=== PATIENT | female | born 1980 | race Caucasian/White ===

== ENCOUNTER 2023-03-11 08:48 | Emergency (ER) | payer MEDICAID ==
[2023-03-11] MEDS ORDERED: Sodium Chloride 0.9% 1,000 ML IV ONE (09:14)
[2023-03-11] MEDS ORDERED: Ondansetron 4 MG/2 ML SDV IVPUSH ONE (09:14)
[2023-03-11 09:24] LABS: APPEARANCE,URINE CLOUDY (CLEAR); BILIRUBIN,URINE NEGATIVE (NEGATIVE); COLOR,URINE YELLOW (YELLOW); GLUCOSE,URINE NEGATIVE (NEGATIVE); KETONES,URINE NEGATIVE (NEGATIVE); LEUKOCYTE ESTERASE,URINE SMALL (NEGATIVE); NITRITE,URINE NEGATIVE (NEGATIVE); OCCULT BLOOD,URINE TRACE-INTACT (NEGATIVE); PROTEIN,URINE 30 mg/dL (NEGATIVE); UROBILINOGEN,URINE 0.2 EU/dL (0.2-1.0)
[2023-03-11 09:28] LABS: HEMATOCRIT 36.7 % (34.3-46.0); MEAN CORPUSCULAR HEMOGLOBIN 29.7 pg (31.6-35.5); MEAN CORPUSCULAR HGB CONC 32.7 g/dL (31.6-35.5); MEAN CORPUSCULAR VOLUME 90.8 fL (81.4-99.0); RED BLOOD CELL COUNT 4.04 M/uL (3.77-5.24); WHITE BLOOD CELL COUNT,WBC 8.8 K/uL (3.2-11.0)
[2023-03-11 09:31] LABS: AMORPHOUS SEDIMENT,URINE NOT SEEN; BACTERIA,URINE MODERATE; EPITHELIAL CELLS,URINE MODERATE; MUCUS,URINE MODERATE; RBC,URINE 0-5 (0-5); WBC,URINE 50-75 (0-5)
[2023-03-11 09:42] LABS: CALCIUM 8.8 mg/dL (8.5-10.1); CREATININE 1.1 mg/dL (0.6-1.0); EST CRCL DRUG DOSING (CG) 46.88 mL/min; POTASSIUM,K 3.5 mmol/L (3.6-5.2)
[2023-03-11 09:45] LABS: ANION GAP 10.5 mmol/L (5.0-14.0)
== END 2023-03-11 11:22 | disposition home or self-care (01) ==
LOC: JP.ED 08:48
DX: N39.0 Urinary tract infection, site not specified (principal); R19.7 Diarrhea, unspecified; Z91.041 Radiographic dye allergy status; Z88.1 Allergy status to other antibiotic agents; Z88.8 Allergy status to other drugs, medicaments and biological substances
CPT/HCPCS: 36415; 80048; 81001; 83605; 85027; 96361; 96374; 99284; J2405; J7030

== ENCOUNTER 2023-04-04 07:57 | Emergency (ER) | payer MEDICAID ==
[2023-04-04 08:41] LABS: APPEARANCE,URINE CLOUDY (CLEAR); BILIRUBIN,URINE NEGATIVE (NEGATIVE); COLOR,URINE YELLOW (YELLOW); GLUCOSE,URINE NEGATIVE (NEGATIVE); KETONES,URINE NEGATIVE (NEGATIVE); LEUKOCYTE ESTERASE,URINE NEGATIVE (NEGATIVE); NITRITE,URINE NEGATIVE (NEGATIVE); OCCULT BLOOD,URINE LARGE (NEGATIVE); PROTEIN,URINE NEGATIVE (NEGATIVE); UROBILINOGEN,URINE 0.2 EU/dL (0.2-1.0)
[2023-04-04 09:02] LABS: AMORPHOUS SEDIMENT,URINE NOT SEEN; BACTERIA,URINE NOT SEEN; EPITHELIAL CELLS,URINE FEW; MUCUS,URINE NOT SEEN; RBC,URINE >100 (0-5); WBC,URINE 0-5 (0-5)
[2023-04-04] MEDS ORDERED: Sodium Chloride 0.9% 10 ML Syringe FLUSH PRN (09:31)
[2023-04-04] MEDS ORDERED: Sodium Chloride 0.9% 1,000 ML IV STA (09:31)
[2023-04-04] MEDS ORDERED: diphenhydrAMINE 50 MG/ML SDV IVPUSH ONE (09:32)
[2023-04-04] MEDS ORDERED: fentaNYL 100 MCG/2 ML SDV IVPUSH ONE (09:42)
[2023-04-04] MEDS ORDERED: Ondansetron 4 MG/2 ML SDV IVPUSH ONE (09:42)
[2023-04-04] MEDS ORDERED: Sodium Chloride 0.9% 50 ML IV ONE (10:07)
[2023-04-04] MEDS ORDERED: Iopamidol 612 MG/ML 100 ML Bottle IV ONE (10:07)
[2023-04-04] MEDS ORDERED: Sodium Chloride 0.9% 10 ML Syringe FLUSH ONE (10:07)
[2023-04-04 10:12] LABS: BASOPHILS PERCENT AUTO 0.2 % (0.1-1.3); EOSINOPHILS ABSOLUTE AUTO 0.25 K/uL (0.00-0.40); EOSINOPHILS PERCENT AUTO 2.7 % (0.0-5.4); HEMATOCRIT 38.1 % (34.3-46.0); HEMOGLOBIN 12.3 g/dL (11.2-15.5); IMMATURE GRAN ABSOLUTE AUTO 0.04 K/uL (0.00-0.23); IMMATURE GRAN PERCENT AUTO 0.4 % (0.0-0.7); LYMPHOCYTES ABSOLUTE AUTO 1.53 K/uL (0.8-3.3); LYMPHOCYTES PERCENT AUTO 16.8 % (11.4-47.7); MEAN CORPUSCULAR HEMOGLOBIN 30.1 pg (31.6-35.5); MEAN CORPUSCULAR HGB CONC 32.3 g/dL (31.6-35.5); MEAN CORPUSCULAR VOLUME 93.2 fL (81.4-99.0); MONOCYTES ABSOLUTE AUTO 0.79 K/uL (0.20-0.90); MONOCYTES PERCENT AUTO 8.7 % (3.3-12.6); NEUTROPHILS PERCENT AUTO 71.2 % (40.0-78.1); PLATELET COUNT,PLT 254 K/uL (130-375); RED BLOOD CELL COUNT 4.09 M/uL (3.77-5.24); WHITE BLOOD CELL COUNT,WBC 9.1 K/uL (3.2-11.0)
[2023-04-04 10:13] LABS: BASOPHILS ABSOLUTE AUTO 0.02 K/uL (0.00-0.10)
[2023-04-04 10:33] LABS: A/G RATIO 0.8 (1.2-2.2); ALANINE AMINOTRANSFERASE,ALT 51 U/L (12-78); ALBUMIN 3.1 g/dL (3.4-5.0); ALKALINE PHOSPHATASE 94 U/L (46-116); ASPARTATE AMNIOTRANSFERASE,AST 31 U/L (15-37); BILIRUBIN TOTAL 0.4 mg/dL (0.2-1.0); BLOOD UREA NITROGEN,BUN 13 mg/dL (7-18); CALCIUM 9.1 mg/dL (8.5-10.1); CARBON DIOXIDE,CO2 26 mmol/L (21-32); CHLORIDE,CL 104 mmol/L (100-108); EST CRCL DRUG DOSING (CG) 51.57 mL/min; ESTIMATED GFR 71 mL/min (>60); GLUCOSE RANDOM 125 mg/dL (74-106); PROTEIN TOTAL,TP 6.8 g/dL (6.4-8.2); SODIUM,NA 136 mmol/L (140-148)
[2023-04-04] MEDS ORDERED: HYDROmorphone 1 MG/ML Syringe IVPUSH ONE (12:12)
== END 2023-04-04 13:44 | disposition home or self-care (01) ==
LOC: JP.ED 07:57
DX: R10.9 Unspecified abdominal pain (principal); R31.0 Gross hematuria; J45.909 Unspecified asthma, uncomplicated; E11.9 Type 2 diabetes mellitus without complications; E66.9 Obesity, unspecified; Z68.41 Body mass index [BMI] 40.0-44.9, adult; Z91.041 Radiographic dye allergy status; Z88.1 Allergy status to other antibiotic agents; Z88.5 Allergy status to narcotic agent; Z86.16 Personal history of COVID-19; Z79.899 Other long term (current) drug therapy
CPT/HCPCS: 36415; 74177; 80053; 81001; 83605; 85025; 87086; 96374; 96375; 99284; J1170; J1200; J2405; J3010; J3490; J7030; Q9967; 87088; 87186

== ENCOUNTER 2023-04-06 15:50 | Emergency (ER) | payer MEDICAID ==
[2023-04-06] MEDS ORDERED: diphenhydrAMINE 50 MG/ML SDV IVPUSH ONE (16:01)
[2023-04-06] MEDS ORDERED: Sodium Chloride 0.9% 10 ML Syringe FLUSH PRN (16:01)
[2023-04-06] MEDS ORDERED: methylPREDNISolone Sodium Succinate 125 MG/2 ML SDV IV ONE (16:01)
[2023-04-06] MEDS ORDERED: Famotidine 20 MG/2 ML SDV IVPUSH ONE (16:01)
[2023-04-06] MEDS ORDERED: Sodium Chloride 0.9% 1,000 ML IV SCH (16:15)
[2023-04-06] MEDS ORDERED: predniSONE 20 MG Tab PO ONE (16:20)
[2023-04-06] MEDS ORDERED: diphenhydrAMINE 50 MG/ML SDV IM ONE (16:21)
[2023-04-06] MEDS ORDERED: Famotidine 20 MG Tab PO SCH (16:30)
== END 2023-04-06 18:45 | disposition home or self-care (01) ==
LOC: JP.ED 15:50
DX: T78.40XA Allergy, unspecified, initial encounter (principal); J45.909 Unspecified asthma, uncomplicated; E11.9 Type 2 diabetes mellitus without complications; E66.9 Obesity, unspecified; Z68.41 Body mass index [BMI] 40.0-44.9, adult; Z86.16 Personal history of COVID-19; Z88.8 Allergy status to other drugs, medicaments and biological substances; Z88.1 Allergy status to other antibiotic agents; Z91.041 Radiographic dye allergy status; Z79.899 Other long term (current) drug therapy
CPT/HCPCS: 96372; 99284; A9270; J1200; J7512

== ENCOUNTER 2023-05-12 12:09 | Emergency (ER) | payer MEDICAID ==
[2023-05-12] MEDS ORDERED: Sodium Chloride 0.9% 1,000 ML IV STA (14:15)
[2023-05-12] MEDS ORDERED: Ondansetron 4 MG/2 ML SDV IVPUSH ONE (14:24)
[2023-05-12 14:40] LABS: HEMATOCRIT 40.5 % (34.3-46.0); HEMOGLOBIN 13.6 g/dL (11.2-15.5); MEAN CORPUSCULAR HEMOGLOBIN 29.8 pg (31.6-35.5); MEAN CORPUSCULAR HGB CONC 33.6 g/dL (31.6-35.5); MEAN CORPUSCULAR VOLUME 88.6 fL (81.4-99.0); RED BLOOD CELL COUNT 4.57 M/uL (3.77-5.24); WHITE BLOOD CELL COUNT,WBC 12.1 K/uL (3.2-11.0)
[2023-05-12 14:41] LABS: BASE EXCESS VENOUS -4.2 mm/L; BICARBONATE,VENOUS 19.9 mmol/L; CARBOXYHEMOGLOBIN 2.2 % (0.0-1.6); METHEMOGLOBIN 0.8 %; O2 SATURATION VENOUS 90.1; OXYHEMOGLOBIN 87.4 %; PCO2 VENOUS 35.3 mm/Hg; PH,VENOUS 7.369 (7.350-7.450); TOTAL HEMOGLOBIN 13.9 g/dL (12.0-16.0)
[2023-05-12 15:07] LABS: ALANINE AMINOTRANSFERASE,ALT 42 U/L (12-78); ALBUMIN 4.1 g/dL (3.4-5.0); ALKALINE PHOSPHATASE 156 U/L (46-116); ASPARTATE AMNIOTRANSFERASE,AST 36 U/L (15-37); BILIRUBIN TOTAL 0.5 mg/dL (0.2-1.0); BLOOD UREA NITROGEN,BUN 22 mg/dL (7-18); CALCIUM 9.9 mg/dL (8.5-10.1); CARBON DIOXIDE,CO2 20 mmol/L (21-32); CHLORIDE,CL 102 mmol/L (100-108); CREATININE 1.1 mg/dL (0.6-1.0); EST CRCL DRUG DOSING (CG) 53.99 mL/min; ESTIMATED GFR 64 mL/min (>60); GLUCOSE RANDOM 161 mg/dL (74-106); POTASSIUM,K 3.5 mmol/L (3.6-5.2); PROTEIN TOTAL,TP 8.1 g/dL (6.4-8.2); SODIUM,NA 135 mmol/L (140-148)
[2023-05-12 15:08] LABS: ANION GAP 16.5 mmol/L (5.0-14.0)
[2023-05-12 15:47] LABS: APPEARANCE,URINE CLOUDY (CLEAR); BILIRUBIN,URINE NEGATIVE (NEGATIVE); COLOR,URINE YELLOW (YELLOW); GLUCOSE,URINE NEGATIVE (NEGATIVE); KETONES,URINE NEGATIVE (NEGATIVE); LEUKOCYTE ESTERASE,URINE TRACE (NEGATIVE); NITRITE,URINE NEGATIVE (NEGATIVE); OCCULT BLOOD,URINE NEGATIVE (NEGATIVE); PH,URINE 6.5 (5.0-8.0); PROTEIN,URINE 100 mg/dL (NEGATIVE); UROBILINOGEN,URINE 0.2 EU/dL (0.2-1.0)
[2023-05-12 15:54] LABS: RBC,URINE 0-5 (0-5)
[2023-05-12 15:55] LABS: AMORPHOUS SEDIMENT,URINE FEW; BACTERIA,URINE FEW; EPITHELIAL CELLS,URINE MANY; MUCUS,URINE MANY
== END 2023-05-12 17:37 | disposition home or self-care (01) ==
LOC: JP.ED 12:09
DX: K52.9 Noninfective gastroenteritis and colitis, unspecified (principal); N39.0 Urinary tract infection, site not specified; E11.9 Type 2 diabetes mellitus without complications; J45.909 Unspecified asthma, uncomplicated; E66.9 Obesity, unspecified; Z68.36 Body mass index [BMI] 36.0-36.9, adult; Z91.041 Radiographic dye allergy status; Z88.1 Allergy status to other antibiotic agents; Z88.8 Allergy status to other drugs, medicaments and biological substances; Z79.899 Other long term (current) drug therapy; Z86.16 Personal history of COVID-19
CPT/HCPCS: 36415; 80053; 81001; 82803; 83605; 83690; 84145; 85027; 87086; 96361; 96374; 99284; J2405; J7030

== ENCOUNTER 2023-05-24 13:21 | Emergency (ER) | payer MEDICAID ==
[2023-05-24] MEDS ORDERED: Sodium Chloride 0.9% 1,000 ML IV SCH ×2 (14:15→17:30)
[2023-05-24 14:39] LABS: BASOPHILS PERCENT AUTO 0.2 % (0.1-1.3); EOSINOPHILS PERCENT AUTO 0.1 % (0.0-5.4); HEMATOCRIT 32.1 % (34.3-46.0); HEMOGLOBIN 10.6 g/dL (11.2-15.5); IMMATURE GRAN ABSOLUTE AUTO 0.04 K/uL (0.00-0.23); IMMATURE GRAN PERCENT AUTO 0.4 % (0.0-0.7); LYMPHOCYTES ABSOLUTE AUTO 0.81 K/uL (0.8-3.3); LYMPHOCYTES PERCENT AUTO 7.1 % (11.4-47.7); MEAN CORPUSCULAR HEMOGLOBIN 29.9 pg (31.6-35.5); MEAN CORPUSCULAR VOLUME 90.4 fL (81.4-99.0); MONOCYTES ABSOLUTE AUTO 0.88 K/uL (0.20-0.90); MONOCYTES PERCENT AUTO 7.7 % (3.3-12.6); NEUTROPHILS PERCENT AUTO 84.5 % (40.0-78.1); PLATELET COUNT,PLT 69 K/uL (130-375); RED BLOOD CELL COUNT 3.55 M/uL (3.77-5.24); WHITE BLOOD CELL COUNT,WBC 11.4 K/uL (3.2-11.0)
[2023-05-24 14:43] LABS: BASOPHILS ABSOLUTE AUTO 0.02 K/uL (0.00-0.10); EOSINOPHILS ABSOLUTE AUTO 0.01 K/uL (0.00-0.40)
[2023-05-24 15:02] LABS: APPEARANCE,URINE CLEAR (CLEAR); BILIRUBIN,URINE NEGATIVE (NEGATIVE); COLOR,URINE YELLOW (YELLOW); GLUCOSE,URINE 100 mg/dL (NEGATIVE); KETONES,URINE NEGATIVE (NEGATIVE); LEUKOCYTE ESTERASE,URINE TRACE (NEGATIVE); NITRITE,URINE NEGATIVE (NEGATIVE); OCCULT BLOOD,URINE NEGATIVE (NEGATIVE); PH,URINE 7.5 (5.0-8.0); PROTEIN,URINE NEGATIVE (NEGATIVE); UROBILINOGEN,URINE 0.2 EU/dL (0.2-1.0)
[2023-05-24 15:09] LABS: AMPHETAMINES SCREEN, URINE NEGATIVE (NEGATIVE); BARBITURATE SCREEN,URINE NEGATIVE (NEGATIVE); METHAMPHETAMINES SCREEN, URINE NEGATIVE (NEGATIVE)
[2023-05-24 15:10] LABS: BENZODIAZEPINES SCREEN,URINE PRESUMPTIVE POSITIVE (NEGATIVE); METHADONE SCREEN, URINE NEGATIVE (NEGATIVE); OXYCODONE SCREEN,URINE NEGATIVE (NEGATIVE); PROPOXYPHENE SCREEN,URINE NEGATIVE (NEGATIVE); THC SCREEN,URINE 50 NG/ML NEGATIVE (NEGATIVE)
[2023-05-24 15:11] LABS: A/G RATIO 0.9 (1.2-2.2); ALANINE AMINOTRANSFERASE,ALT 117 U/L (12-78); ALBUMIN 3.1 g/dL (3.4-5.0); ALKALINE PHOSPHATASE 139 U/L (46-116); ASPARTATE AMNIOTRANSFERASE,AST 145 U/L (15-37); BILIRUBIN TOTAL 0.4 mg/dL (0.2-1.0); BLOOD UREA NITROGEN,BUN 10 mg/dL (7-18); CALCIUM 8.9 mg/dL (8.5-10.1); CARBON DIOXIDE,CO2 27 mmol/L (21-32); CHLORIDE,CL 103 mmol/L (100-108); CREATININE 0.8 mg/dL (0.6-1.0); EST CRCL DRUG DOSING (CG) 64.46 mL/min; ESTIMATED GFR 93 mL/min (>60); GLUCOSE RANDOM 117 mg/dL (74-106); POTASSIUM,K 4.3 mmol/L (3.6-5.2); PROTEIN TOTAL,TP 6.5 g/dL (6.4-8.2); SODIUM,NA 137 mmol/L (140-148)
[2023-05-24 15:11] LABS: AMORPHOUS SEDIMENT,URINE NOT SEEN; BACTERIA,URINE MODERATE; EPITHELIAL CELLS,URINE FEW; MUCUS,URINE NOT SEEN; RBC,URINE NOT SEEN (0-5)
[2023-05-24 15:13] LABS: ANION GAP 11.3 mmol/L (5.0-14.0)
[2023-05-24 16:27] LABS: CORONAVIRUS COVID-19 NAA NEGATIVE (NEGATIVE); INFLUENZA A NAA NEGATIVE (NEGATIVE); INFLUENZA B NAA NEGATIVE (NEGATIVE); RESPIRATORY SYNCYTIAL VIR NAA NEGATIVE (NEGATIVE)
[2023-05-24] MEDS ORDERED: cefTRIAXone 2 GM in Sodium Chloride 0.9% 50 ML IV ONE (17:02)
== END 2023-05-24 22:00 | disposition home or self-care (01) ==
LOC: JP.ED 13:21
DX: K52.9 Noninfective gastroenteritis and colitis, unspecified (principal); N39.0 Urinary tract infection, site not specified; R55 Syncope and collapse; J45.909 Unspecified asthma, uncomplicated; E11.9 Type 2 diabetes mellitus without complications; E66.9 Obesity, unspecified; Z91.041 Radiographic dye allergy status; Z88.8 Allergy status to other drugs, medicaments and biological substances; Z88.1 Allergy status to other antibiotic agents; Z79.51 Long term (current) use of inhaled steroids; Z79.4 Long term (current) use of insulin; Z86.16 Personal history of COVID-19; Z20.822 Contact with and (suspected) exposure to COVID-19; Z68.41 Body mass index [BMI] 40.0-44.9, adult
CPT/HCPCS: 0241U; 36415; 71045; 80053; 80178; 80305; 80307; 81001; 81025; 83605; 84443; 85025; 87086; 87651; 96361; 96365; 99284; J0696; J3490; J7030; 99283